=== PATIENT | female | born 1950 | race African-American/Black ===

== ENCOUNTER 2019-10-01 07:08 | Inpatient (IN) | payer OTHER ==
[2019-09-27 17:00] VITALS: BMI 27.9
--- NOTE | 2019-10-01 07:32 | HP ---
History & Physical Update - History History: No Change - Physical Physical: No Change - Assessment Assessment: No Change - Plan Plan: No Change (Consent sogned and witnessed)
[2019-10-01] MEDS ORDERED: PROPOFOL 20 ML ONE ×2 (07:37)
[2019-10-01] MEDS ORDERED: SODIUM CHLORIDE 0.9% P/F 10 ML VIAL IJ ONE ×3 (07:38→09:53)
[2019-10-01] MEDS ORDERED: LIDOCAINE HCL/PF 2% SDV 5ML VIAL ONE (07:38)
[2019-10-01] MEDS ORDERED: fentaNYL CITRATE 250 MCG/5 ML VIAL ONE (07:42)
[2019-10-01] MEDS ORDERED: MIDAZOLAM HCL 2 MG/2 ML SINGLE DOSE VIAL ONE ×2 (07:43)
[2019-10-01] MEDS ORDERED: BUPIVACAINE HCL/PF 0.25% (2.5MG/ML) 10 ML VIAL ONE (07:56)
[2019-10-01] MEDS ORDERED: BUPIVACAINE LIPOSOME/PF (EXPAREL) 266 MG/20 ML VIAL ONE (07:56)
[2019-10-01] MEDS ORDERED: THROMBIN (BOVINE) 20,000 UNIT VIAL TP ONE (07:57)
[2019-10-01] MEDS ORDERED: ACETAMINOPHEN INJECTION 100 ML IVPB ONE (07:58)
[2019-10-01] MEDS ORDERED: ONDANSETRON 4 MG/2 ML VIAL IVPUSH PRN ×2 (08:06→11:41)
[2019-10-01] MEDS ORDERED: HYDROmorphone HCL CARPU-JECT 2 MG/1 ML DISP.SYRIN IVPUSH PRN (08:08)
[2019-10-01] MEDS ORDERED: LACTATED RINGERS SOLUTION 1,000 ML IV SCH (08:15)
[2019-10-01] MEDS ORDERED: LIDOCAINE HCL 1%, 10 MG/ML (20ML VIAL) ONE (08:22)
[2019-10-01] MEDS ORDERED: TRIAMCINOLONE ACET 40MG/1ML VIAL ONE (08:48)
[2019-10-01] MEDS ORDERED: TRIAMCINOLONE ACETONIDE 40 MG/ML 10 ML VIAL NR ONE ×2 (08:57)
[2019-10-01] MEDS ORDERED: ceFAZolin SODIUM 1 GM VIAL ONE (09:52)
[2019-10-01] MEDS ORDERED: DEXAMETHASONE SOD PHOSPHATE 4 MG/1 ML VIAL ONE (09:52)
[2019-10-01] MEDS ORDERED: NEOSTIGMINE METHYLSULFATE 0.5 MG/1 ML - 10 ML MDV ONE (09:56)
[2019-10-01] MEDS ORDERED: GLYCOPYRROLATE 0.2 MG/1 ML VIAL ONE (09:57)
[2019-10-01] MEDS ORDERED: ceFAZolin SODIUM 1 GM VIAL IVPB ONE (10:10)
--- NOTE | 2019-10-01 11:49 | OP ---
Operative Note - Note: Operative Date: 10/01/19 Pre-Operative Diagnosis: 65yo P3 with recurrent PMB, increasing in size fundal fibroid Operation: Total abdominal hysterectomy and bilateral salpingoophorectomy Findings: 1. 10cm right sided, fundal fibroid 2. Normal bilateral adnexa Post-Operative Diagnosis: Same as Pre-op Surgeon: Jenifer Cancino Instructional Assistant: Kenneth Briggs Anesthesiologist/PUBLIC HEALTH STAFF NURSE: Jaylene Lackey Anesthesia: General Specimens Removed: 1. Pelvic washings. 2. Uterus with cervix. 3. BL tubes and ovaries Estimated Blood Loss (mls): 150 Drains, Volume Out (mls): 300 Fluid Volume Replaced (mls): 1,350 Operative Report Dictated: Yes
[2019-10-01] MEDS ORDERED: HYDROmorphone HCl 2 MG/ML VIAL ONE (11:52)
[2019-10-01] MEDS: HYDROmorphone HCL CARPU-JECT 2 MG/1 ML DISP.SYRIN IVPUSH PRN ×4 (11:57→14:03)
[2019-10-01] MEDS: ACETAMINOPHEN 500 MG TABLET (FP) PO PRN (16:41)
[2019-10-01] MEDS: ELECTROLYTE-148 SOLN 1,000 ML IV SCH ×2 (16:46→17:37)
[2019-10-01] MEDS: CEFAZOLIN 2 GM/D5W 2 GM/50 ML ML IVPB SCH (17:36)
[2019-10-01] MEDS: oxyCODONE HCL 5 MG TABLET PO PRN (18:53)
[2019-10-01] MEDS: morphine SULFATE 4 MG/ML VIAL IVPUSH PRN (20:30)
[2019-10-01] MEDS ORDERED: AMITRIPTYLINE HCL 10 MG TABLET PO ONE (23:15)
[2019-10-01] MEDS: NIFEdipine E.R. 30 MG TABLET PO SCH (23:41)
[2019-10-02] MEDS: CEFAZOLIN 2 GM/D5W 2 GM/50 ML ML IVPB SCH (01:23)
[2019-10-02] MEDS: morphine SULFATE 4 MG/ML VIAL IVPUSH PRN (01:23)
[2019-10-02] MEDS: ELECTROLYTE-148 SOLN 1,000 ML IV SCH (01:25)
--- NOTE | 2019-10-02 07:54 | PN ---
Progress Note, Physician Chief Complaint: No complains now, required Morphine 4mg twice over night tolarated PO and passed gas - Current Medication List Current Medications: Active Medications Acetaminophen (Tylenol -) 1,000 mg PO Q6H PRN PRN Reason: PAIN LEVEL 1-5 Last Admin: 10/01/19 16:41 Dose: 1,000 mg Documented by: Parenteral Electrolytes (Plasma-Lyte 148 -) 1,000 mls @ 125 mls/hr IV ASDIR [facility] Stop: 10/02/19 10:00 Last Admin: 10/02/19 01:25 Dose: 125 mls/hr Documented by: Morphine Sulfate (Morphine Sulfate) 4 mg IVPUSH Q4H PRN PRN Reason: PAIN 6-10 Last Admin: 10/02/19 01:23 Dose: 4 mg Documented by: Nifedipine (Procardia Xl -) 30 mg PO DAILY [facility] Last Admin: 10/01/19 23:41 Dose: 30 mg Documented by: Ondansetron HCl (Zofran Injection) 4 mg IVPUSH Q6H PRN PRN Reason: NAUSEA Oxycodone HCl (Roxicodone -) 5 mg PO Q4H PRN PRN Reason: PAIN LEVEL 4 - 6 Last Admin: 10/01/19 18:53 Dose: 5 mg Documented by: - Objective Vital Signs: Vital Signs Temperature 98.1 F 10/02/19 06:22 Pulse Rate 79 10/02/19 06:22 Respiratory Rate 18 10/02/19 06:22 Blood Pressure 131/76 10/02/19 06:22 O2 Sat by Pulse Oximetry (%) 97 10/02/19 06:22 Constitutional: Yes: Well Nourished, No Distress, Calm Eyes: Yes: WNL, Conjunctiva Clear, EOM Intact HENT: Yes: WNL, Atraumatic, Normocephalic Neck: Yes: WNL, Supple, Trachea Midline Cardiovascular: Yes: WNL, Regular Rate and Rhythm Respiratory: Yes: WNL, Regular, CTA Bilaterally Gastrointestinal: Yes: WNL, Normal Bowel Sounds, Soft ...Rectal Exam: Yes: WNL Genitourinary: Yes: WNL Breast(s): Yes: WNL Musculoskeletal: Yes: WNL Extremities: Yes: WNL Integumentary: Yes: WNL Wound/Incision: Yes: Clean/Dry, Well Approximated Neurological: Yes: WNL, Alert, Oriented ...Motor Strength: WNL Psychiatric: Yes: WNL, Alert, Oriented Assessment/Plan 69yo POD #1 s/p JUANJOSE/BSO VSS, Afebrile BP improved with Procardia d/c Ledezma cont. with current pain managment Encourage ambulation
[2019-10-02 08:31] LABS: HEMATOCRIT 41.5 % (32.4-45.2); MCH 24.3 pg (25.7-33.7); MCHC 31.2 g/dl (32.0-36.0); MEAN PLT VOLUME 8.3 fl (7.5-11.1); PLATELET COUNT 353 K/MM3 (134-434); RBC 5.32 M/mm3 (3.60-5.2); RDW 14.5 % (11.6-15.6); WHITE BLOOD COUNT 17.2 K/mm3 (4.0-10.0)
[2019-10-02] MEDS: NIFEdipine E.R. 30 MG TABLET PO SCH (09:47)
[2019-10-02] MEDS: oxyCODONE HCL 5 MG TABLET PO PRN (09:55)
[2019-10-02] MEDS: ACETAMINOPHEN 500 MG TABLET (FP) PO PRN (15:26)
[2019-10-02] MEDS: BISACODYL 10 MG SUPP.RECT PR PRN (18:39)
--- NOTE | 2019-10-03 08:06 | PN ---
Progress Note, Physician Chief Complaint: No complains now, feels improved tolarated PO and passed gas, voiding and ambulating without a problem - Current Medication List Current Medications: Active Medications Acetaminophen (Tylenol -) 1,000 mg PO Q6H PRN PRN Reason: PAIN LEVEL 1-5 Last Admin: 10/02/19 15:26 Dose: 1,000 mg Documented by: Bisacodyl (Dulcolax Suppository -) 10 mg MA DAILY PRN PRN Reason: CONSTIPATION Last Admin: 10/02/19 18:39 Dose: 10 mg Documented by: Morphine Sulfate (Morphine Sulfate) 4 mg IVPUSH Q4H PRN PRN Reason: PAIN 6-10 Last Admin: 10/02/19 01:23 Dose: 4 mg Documented by: Nifedipine (Procardia Xl -) 30 mg PO DAILY [facility] Last Admin: 10/02/19 09:47 Dose: 30 mg Documented by: Ondansetron HCl (Zofran Injection) 4 mg IVPUSH Q6H PRN PRN Reason: NAUSEA Oxycodone HCl (Roxicodone -) 5 mg PO Q4H PRN PRN Reason: PAIN LEVEL 4 - 6 Last Admin: 10/02/19 09:55 Dose: 5 mg Documented by: - Objective Vital Signs: Vital Signs Temperature 97.3 F L 10/03/19 02:00 Pulse Rate 82 10/03/19 02:00 Respiratory Rate 18 10/03/19 02:00 Blood Pressure 130/78 10/03/19 02:00 O2 Sat by Pulse Oximetry (%) 100 10/03/19 02:00 Constitutional: Yes: Well Nourished, No Distress, Calm Eyes: Yes: WNL, Conjunctiva Clear HENT: Yes: WNL, Atraumatic Neck: Yes: WNL, Supple, Trachea Midline Cardiovascular: Yes: WNL, Regular Rate and Rhythm Respiratory: Yes: WNL, Regular, CTA Bilaterally Gastrointestinal: Yes: WNL, Normal Bowel Sounds, Soft Musculoskeletal: Yes: WNL Extremities: Yes: WNL Edema: No Integumentary: Yes: WNL Wound/Incision: Yes: Clean/Dry, Well Approximated, Sutures Intact Neurological: Yes: WNL, Alert, Oriented ...Motor Strength: WNL Psychiatric: Yes: WNL, Alert, Oriented Labs: CBC, BMP 10/02/19 07:20 Assessment/Plan 69yo POD #1 s/p JUANJOSE/BSO VSS, Afebrile BP improved with Procardia cont. with current pain managment Encourage ambulation await CBC Plan to D/C today
--- NOTE | 2019-10-03 08:51 | OP ---
DATE OF OPERATION: DATE OF DICTATION: 10/01/2019 PREOPERATIVE DIAGNOSES: A 69-year-old para 3 with recurrent postmenopausal bleeding, increasing size of fundal fibroid. POSTOPERATIVE DIAGNOSES: A 69-year-old para 3 with recurrent postmenopausal bleeding, increasing size of fundal fibroid. PROCEDURE: Total abdominal hysterectomy and bilateral salpingo-oophorectomy. FINDINGS: A 10-cm right-sided fundal fibroid and normal bilateral adnexa. SURGEON: Jenifer Cancino MD RESULTS ENGINEER: Eneida Briggs MD ANESTHESIOLOGIST: Jaylene Lackey MD ANESTHESIA: General. SPECIMENS REMOVED: Pelvic portions, uterus with cervix, bilateral tubes and ovaries. DESCRIPTION OF THE OPERATIVE PROCEDURE: After assuring informed consent and discussing all risks, benefits and alternatives patient was brought to the operating room where she was placed in dorsal supine position. Abdomen and vagina were prepped. The Ledezma catheter was placed after anesthesia was administered. Patient was draped in a sterile fashion. Pfannenstiel skin incision was created with a scalpel, brought down to the level of fascia with Bovie cautery. Fascia was incised with Bovie cautery and dissected off the rectus abdominis muscle superiorly and inferiorly. Muscle was split in the midline. The peritoneum was tented with Kaylan clamps and Metzenbaum scissors were used to enter the peritoneum sharply with good visualization of underlying viscera. The peritoneal incision was dissected superiorly, inferiorly. Bladder was retracted with a [place]. Gutters were packed. Patient was placed into Trendelenburg position. The uterus was exteriorized. Round ligaments were identified. The uterus was very asymmetrical on the right side due to right-sided very large fibroid which was larger in size than the uterus itself. Bilateral round ligaments were ligated with LigaSure. The bladder flap was created with LigaSure. Infundibulopelvic ligament was ligated on each side and each ovary and fallopian tube were dissected off the broad ligament to become part of the specimen. The uterine arteries were skeletonized on each side, clamped with Mariaelena clamps and suture ligated with 0 Vicryl subsequent parametrial stitches. Further dissection was made by placing consecutive Mariaelena clamps and suture ligating parametrial ligaments. The uterosacral ligaments were clamped with Mariaelena clamp and suture ligated. The paracervical clamps were placed as well at the base of the descending uterine artery further. Subsequently the cervix was clamped underneath with Mariaelena clamps and the entire specimen containing the bilateral tubes and ovaries, uterine fundus and cervix was dissected off the vagina and sent for pathology. At the beginning of the procedure pelvic washings were collected and sent for cytology. The vaginal stump was sutured with [id number] achieving excellent hemostasis and peritoneum was repaired on top of the vaginal cuff. Excellent hemostasis was noted. Abdomen was copiously irrigated. All pedicles were found to be hemostatic. Peritoneum was closed with 0 Vicryl in running fashion. Muscle was reapproximated at the middle with [id number]. The fascia was closed with 0 Vicryl in one running stitch. The subcutaneous space was closed with 0 Vicryl interrupted sutures. Skin was closed with 3-0 Biosyn on a Arnel needle and subsequently the incision was infused with 20 mg total 18 mL of triamcinolone to decrease the risk of keloid formation. Patient tolerated the procedure well. Estimated blood loss was 150 mL. Urine output 300 mL. Patient received 1350 mL of IV fluid. Instrument and sponge count was correct x2. Patient was brought to the recovery room in stable condition. Tammi [id number]
[2019-10-03] MEDS: BISACODYL 10 MG SUPP.RECT PR PRN (09:34)
[2019-10-03] MEDS: NIFEdipine E.R. 30 MG TABLET PO SCH (09:34)
[2019-10-03] MEDS: ACETAMINOPHEN 500 MG TABLET (FP) PO PRN (09:35)
[2019-10-03 09:59] LABS: BASO % 0.2 % (0-2.0); HEMATOCRIT 42.4 % (32.4-45.2); HEMOGLOBIN 13.2 GM/dL (10.7-15.3); LYMPH % 5.4 % (8-40); MCH 24.3 pg (25.7-33.7); MCHC 31.2 g/dl (32.0-36.0); MEAN PLT VOLUME 8.4 fl (7.5-11.1); MONO % 4.7 % (3.8-10.2); NEUT % 89.7 % (42.8-82.8); PLATELET COUNT 356 K/MM3 (134-434); RBC 5.44 M/mm3 (3.60-5.2); RDW 14.6 % (11.6-15.6); WHITE BLOOD COUNT 15.2 K/mm3 (4.0-10.0)
[2019-10-03] MEDS ORDERED: PT OWN MED DRAWER 7, Y5N ONE (12:30)
[2019-10-03 15:06] VITALS: BP 134/72; PULSE 94; TEMP 98.2
--- NOTE | 2019-10-03 18:41 | DS ---
Physical Examination Vital Signs: Vital Signs Temperature 98.2 F 10/03/19 14:00 Pulse Rate 94 H 10/03/19 14:00 Respiratory Rate 20 10/03/19 14:00 Blood Pressure 134/72 10/03/19 14:00 O2 Sat by Pulse Oximetry (%) 99 10/03/19 10:00 Constitutional: Yes: Well Nourished, No Distress, Calm Eyes: Yes: WNL HENT: Yes: WNL, Atraumatic Neck: Yes: WNL, Supple Cardiovascular: Yes: WNL, Regular Rate and Rhythm Respiratory: Yes: WNL, Regular, CTA Bilaterally Gastrointestinal: Yes: WNL, Normal Bowel Sounds, Soft Renal/: Yes: WNL Musculoskeletal: Yes: WNL Extremities: Yes: WNL Edema: No Integumentary: Yes: WNL Wound/Incision: Yes: Clean/Dry, Well Approximated Neurological: Yes: WNL, Alert, Oriented ...Motor Strength: WNL Psychiatric: Yes: WNL, Alert, Oriented Labs: CBC, BMP 10/03/19 09:20 Discharge Summary Problems reviewed: Yes Reason For Visit: POSTMENOPAUSAL BLEEDING Other Procedures: JUANJOSE/BSO Hospital Course: uncomplicated Condition: Good - Instructions Diet, Activity, Other Instructions: Dr. Jenifer Cancino Manager Building discharge instructions Physical activity Resume your normal everyday activity as tolerated no heavy lifting or exercise until seen by your surgeon. You may walk unlimited chelsy of and climb stairs. You may resume driving the car when you feel safe and comfortable behind the wheel. No sexual activity as instructed by Dr. Cancino Wound care If you have a bandage, leave it on, and keep dry for 48-72 hours. After that time discard the outer bandage. If they are tapes on the skin under the out of bandage leave them in place. They will peel off in the next 7 to 10 days. Do Not Peel them off. You may shower the day after surgery. If there are tapes present on the skin, you may shower over them. Diet There are no dietary restrictions. Eat healthy, high-fiber foods. Drink 6 to 8 glasses of liquid each day. This will assist in keeping your bowels are regular. Pain management You may take Tylenol or acetaminophen or Ibuprofen (for example, Motrin, Advil etc.) from my pain prescription medication is ordered should be taken as prescribed for moderate to severe pain. Call Dr. Cancino for any of the following: Severe pain not relieved by medication Fever of 101 or higher Excessive bleeding or drainage on dressing Inability to urinate Call the office at [phone] for an appointment in seven days. Referrals: Jenifer Cancino MD [Staff Physician] - Disposition: HOME - Home Medications Comprehensive Discharge Medication List: Ambulatory Orders Mesalamine [Lialda] 1.2 gm PO BID 09/27/19 Rosuvastatin [Crestor -] 10 mg PO DAILY 09/27/19 Nifedipine [Procardia Xl] 30 mg PO DAILY #30 tab.er.24 MDD 1 10/03/19 Nifedipine [Procardia Xl] 30 mg PO DAILY 30 Days tab.er.24 10/03/19 Oxycodone HCl 5 mg PO Q4HWA 7 Days #20 capsule MDD 8 10/03/19
--- NOTE | 2019-10-04 18:54 | PATH ---
Surgical Pathology Report Patient Name: TASNEEM CHIANG [facility]. Rec. #: [id number] /Age/Gender: 1950 (Age: 69) / F Account: [id number] Location: [facility] MED/SURG Taken: 10/01/2019 Received: 10/01/2019 Reported: 10/04/2019 Physicians: Jenifer Cancino M.D. Specimen(s) Received UTERUS, CERVIX, BILATERAL FALLOPIAN TUBES, BILATERAL OVARIES Clinical History Postmenopausal bleeding Final Diagnosis UTERUS, CERVIX, BILATERAL FALLOPIAN TUBES, BILATERAL OVARIES, TOTAL ABDOMINAL HYSTERECTOMY AND BILATERAL SALPINGO-OOPHORECTOMY: 274 G UTERUS. LEIOMYOMA, SUBSEROSAL. ATROPHIC ENDOMETRIUM. CERVIX WITHOUT SIGNIFICANT PATHOLOGIC FINDINGS. RIGHT OVARY WITH FOCAL ENDOSALPINGOSIS. LEFT OVARY WITHOUT SIGNIFICANT PATHOLOGIC FINDINGS. LEFT FALLOPIAN TUBE WITH ENDOSALPINGOSIS (INCLUDING FULL LUMINAL PORTION AND FIMBRIATED END). RIGHT FALLOPIAN TUBE WITH ENDOSALPINGOSIS AND PARATUBAL CYST (INCLUDING FULL LUMINAL PORTION AND FIMBRIATED END). Comment: See concurrent cytology ([id number]). Electronically Signed Summer Busby M.D. Gross Description Received in formalin labeled "uterus, cervix, bilateral fallopian tubes and bilateral ovaries," is a 274 g supracervically amputated uterus with bilateral attached adnexa. The cervix is separately received within the same container. The uterus measures 4 cm from left to right, 3.4 cm from superior to inferior, and 3 cm from anterior to posterior. There is an 8 cm in greatest dimension large subserosal fibroid bulging from the anterior/right aspect of the specimen. The serosa is valencia-espinosa and smooth. The separately received cervix measures 5.5 cm in length and averages 2.4 cm in diameter. The ectocervix is valencia, smooth and glistening. The endocervix is unremarkable. The endometrial cavity measures 2.7 cm in length and 2.3 cm from cornu to cornu. The endometrium is valencia-red and averages 0.1 cm in thickness. The myometrium is valencia-pink and averages 1.4 cm in thickness. No intramural nodules are identified. Sectioning of the large bulging subserosal nodule reveals valencia, firm to rubbery parenchyma with whorled architecture. No areas of hemorrhage or necrosis are identified. The left fimbriated fallopian tube measures 6.5 cm in length. The outer surface is valencia randall and smooth. Sectioning reveals an unremarkable lumen. The left ovary measures 3.7 x 1.0 x 0.8 cm. The outer surface is valencia-yellow and smooth. Sectioning reveals unremarkable ovarian parenchyma. The right fimbriated fallopian tube measures 5.5 cm in length. The outer surface is valencia-espinosa and smooth. Sectioning reveals an unremarkable lumen. The right ovary measures 2.4 x 1.4 x 0.7 cm. The outer surface is valencia-yellow and smooth. Sectioning reveals unremarkable ovarian parenchyma. Sofa Back Upholsterer sections are submitted in 16 cassettes as follows: 1-anterior cervix; 2-posterior cervix; 6-7-fplkweit endomyometrium; 7-9-azwwskqod endomyometrium; 5-69-whxumevgzj nodule; 11-left fallopian tube fimbria; 12-cross sections of left fallopian tube; 13-left ovary; 14-right fallopian tube fimbria; 15-cross sections of right fallopian tube; 16-right ovary. 10/02/2019 [facility]10/02/2019
--- NOTE | 2019-10-04 18:55 | PATH ---
Cytology Non-Gynecological Report Patient Name: TASNEEM CHIANG Med. Rec. #: [id number] /Age/Gender: 1950 (Age: 69) / F Account: [id number] Location: [facility] MED/SURG Taken: 10/01/2019 Received: 10/01/2019 Reported: 10/04/2019 Physicians: Jenifer Cancino M.D. Specimen(s) Received PELVIC WASHING Clinical History Postmenopausal bleeding Final Diagnosis PELVIC WASHING FOR CYTOLOGY: SATISFACTORY FOR EVALUATION. NEGATIVE FOR MALIGNANCY. MESOTHELIAL CELLS WITH DEGENERATIVE CHANGES AND CRUSH ARTIFACT. Comment: See concurrent excision ([id number]). Electronically Signed Summer Busby M.D. Gross Description Approximately 35 cc of bloody fluid received fresh. One cytofunnel prepared and Pap stained. One cellblock prepared.
== END 2019-10-03 19:33 | disposition home or self-care (01) | DRG 743 ==
LOC: J2C 07:08 → INTOOBSV 07:08 → OBSVTOIN 07:08 → J8W 15:24
PROVIDERS: ADMIT Obstetrics & Gynecology; ATTEND Obstetrics & Gynecology
PROC: 0UT70ZZ Resection of Bilateral Fallopian Tubes, Open Approach (ICD-10-PCS; 2019-10-01)
PROC: 0UT20ZZ Resection of Bilateral Ovaries, Open Approach (ICD-10-PCS; 2019-10-01)
PROC: 0UT90ZZ Resection of Uterus, Open Approach (ICD-10-PCS; principal; 2019-10-01 09:00)
DX: D25.2 Subserosal leiomyoma of uterus (principal); N95.0 Postmenopausal bleeding; N83.8 Other noninflammatory disorders of ovary, fallopian tube and broad ligament
CPT/HCPCS: 36415; 85025; 85027; 86850; 86900; 86901; 88104; 88305-TC; 88307-TC; 94010; 94760; J0131; U0003